=== PATIENT | female | born 1980 | race Caucasian/White ===

== ENCOUNTER 2018-02-17 16:23 | Emergency (ER) | payer SELFPAY ==
[~2018-02-17] VITALS: Ht 180.3 cm; Wt 124.5 kg
[2018-02-17 16:26] VITALS: BP 150/89
[2018-02-17 17:30] LABS: HEMATOCRIT 41.4 % (36.0-46.0); HEMOGLOBIN 14.6 G/DL (11.9-15.5); MCH 31.3 PG (29.0-34.0); MCHC 35.3 G/DL (30.0-36.0); MCV 88.7 FL (83-99); PLATELET COUNT 281 K/uL (156-360); RBC DIS.WIDTH-CV 13.2 % (11.8-14.6); RBC DIS.WIDTH-SD 43.3 % (39-53); RED BLOOD COUNT 4.67 M/uL (3.80-5.20); WHITE BLOOD COUNT 9.1 K/uL (4.1-10.2)
[2018-02-17 17:39] LABS: CHLORIDE 107 mEq/L (99-109); POTASSIUM 4.1 mEq/L (3.7-5.4); SODIUM 139 mEq/L (136-147)
[2018-02-17 17:41] LABS: GLUCOSE 100 mg/dL (70-99)
[2018-02-17 17:44] LABS: CREATININE 0.8 mg/dL (0.6-1.3); GFR ESTIMATE (CALCULATED) > 59 mL/min/
[2018-02-17 17:45] LABS: UREA NITROGEN (BUN) 9 mg/dL (9-23)
[2018-02-17 17:55] LABS: QUANTITATIVE HCG < 4.0 MIU/ML
== END 2018-02-17 19:42 | disposition home or self-care (01) ==
LOC: EME 16:23
PROVIDERS: Nurse Practitioner Family
DX: E86.0 Dehydration (principal); R11.0 Nausea; T67.3XXA Heat exhaustion, anhydrotic, initial encounter; X30.XXXA Exposure to excessive natural heat, initial encounter; M79.7 Fibromyalgia; M41.9 Scoliosis, unspecified; Z88.2 Allergy status to sulfonamides; F17.200 Nicotine dependence, unspecified, uncomplicated
CPT/HCPCS: 80048; 84702; 85027; 99281; 99283; J7030